=== PATIENT | male | born 1980 | race Caucasian/White ===

== ENCOUNTER 2020-06-25 05:21 | Emergency (ER) | payer OTHER, SELFPAY ==
[2020-06-25 05:34] VITALS: BP 150/87; PULSE 86; RESP 20; TEMP 37.2; O2SAT 99
--- NOTE | 2020-06-25 06:25 | ED.EAR ---
HPI - Ear Problem General Chief complaint: Ear Stated complaint: bug in left ear Time Seen by Provider: 06/25/20 06:12 Source: patient Mode of arrival: ambulatory Limitations: no limitations History of Present Illness HPI Narrative: Patient is a 40-year-old male with a history of hypertension who presents for evaluation of bug in left ear. Patient states he was swimming 2 nights ago when a bug got into his ear from the pool, he tried to place some cooking oil into his ear and does not feel any movement of the back. He has been unsuccessful in other remedies to try to get the bug out. He does not report any ear pain. No dizziness. No discharge from the ear. Related Data Home Medications Medication Instructions Recorded Confirmed lisinopril 20 mg PO DAILY 06/25/20 paroxetine HCl 40 mg PO QAM 06/25/20 Allergies Allergy/AdvReac Type Severity Reaction Status Date / Time No Known Allergies Allergy Unknown Verified 06/25/20 05:31 Review of Systems Review of Systems: Narrative: CONSTITUTIONAL: Denies fever CARDIOVASCULAR: Denies chest pain RESPIRATORY: Denies cough or dyspnea. GASTROINTESTINAL: Denies abdominal pain SKIN: Denies rash MUSCULOSKELETAL: Denies back pain NEUROLOGIC: Denies headache [facility] Past Medical History Medical History (Updated 06/25/20 @ 07:01 by Dorys Villalta MD) Hypertension Social History Social History Smoking status: Former smoker Smoking end date: 11/30/15 Alcohol intake: never Exam Narrative: Exam Narrative: GENERAL: Awake, alert, conversant HEAD: Normocephalic, atraumatic. EYES: PERRLA and EOMI. ENT: Nares clear, no rhinorrhea or epistaxis. Mucous membranes moist. Positive foreign body identified as insect in left ear. No active movement. No perforation of the tympanic membrane. NECK: Supple. CHEST: No respiratory distress, breathing even and non labored HEART: Regular rate, sinus rhythm ABDOMEN:Non distended, non tender EXTREMITIES: Normal range of motion. No edema. SKIN: Warm, dry, no rash. NEURO:No focal deficits. Alert and oriented x3 Course Vital Signs Vital signs: Vital Signs Temperature 37.2 C 06/25/20 05:34 Pulse Rate 86 06/25/20 05:34 Respiratory Rate 20 06/25/20 05:34 Blood Pressure 150/87 H 06/25/20 05:34 Pulse Oximetry 99 06/25/20 05:34 Temperature 37.2 C 06/25/20 05:34 Pulse Rate 86 06/25/20 05:34 Respiratory Rate 20 06/25/20 05:34 Blood Pressure 150/87 H 06/25/20 05:34 Pulse Oximetry 99 06/25/20 05:34 Medical Decision Making MDM Narrative Medical decision making narrative: Patient with foreign body, insect in left ear. It does not appear to be alive. I tried numerous remedies including irrigation, suction with pediatric catheter without able to remove the bug. At this point I feel like patient would benefit from ENT follow-up as I do not want to perforate the tympanic membrane. I spoke with Dr. joshua Orosco who will be able to see the patient either today or tomorrow in clinic. Patient then discharged home. Vital Signs Vital Signs: Vital Signs Temperature 37.2 C 06/25/20 05:34 Pulse Rate 86 06/25/20 05:34 Respiratory Rate 20 06/25/20 05:34 Blood Pressure 150/87 H 06/25/20 05:34 Pulse Oximetry 99 06/25/20 05:34 Temperature 37.2 C 06/25/20 05:34 Pulse Rate 86 06/25/20 05:34 Respiratory Rate 20 06/25/20 05:34 Blood Pressure 150/87 H 06/25/20 05:34 Pulse Oximetry 99 06/25/20 05:34 Discharge Plan Discharge Clinical Impression: Foreign body in ear Qualifiers: Encounter type: initial encounter Laterality: left Qualified Code(s): T16.2XXA - Foreign body in left ear, initial encounter Patient Disposition: Home, Self-Care Condition: Stable Instructions: Ear Foreign Body (ED) Additional Instructions: Please contact Dr. Garcia for follow up from this visit. You may also contact Dr. Mensah. They are all
[2020-06-25 07:10] VITALS: BP 142/87; PULSE 82; RESP 16; O2SAT 99
== END 2020-06-25 07:11 | disposition home or self-care (01) ==
PROVIDERS: Emergency Provider Emergency Medicine; PCP Family Medicine
DX: T16.2XXA Foreign body in left ear, initial encounter (principal); I10 Essential (primary) hypertension; Z87.891 Personal history of nicotine dependence
CPT/HCPCS: 69200; 99282

== ENCOUNTER 2021-02-20 15:37 | Emergency (ER) | payer OTHER, SELFPAY ==
--- NOTE | ~2021-02-20 | CT_ITS ---
EXAMINATION: CT abdomen pelvis w con DATE: 02/20/2021 17:43 INDICATION: Left flank intermittent pain for one day. TECHNIQUE: Computed tomography (CT) of the abdomen and pelvis was performed with 100 cc Omnipaque 350 intravenous contrast. Automated exposure control and iterative reconstruction technique were employe d. Exam dose: 1030.54 mGy-cm total exam DLP. COMPARISON: 07/21/2011 CT abdomen pelvis FINDINGS: Fat-containing left foramen of Bochdalek hernia. The included lower lung zones are clear of infiltrate or consolidation. Normal heart size. No pericar dial or pleural effusion. Status post cholecystectomy. No hepatic, splenic, pancreatic, and adrenal or renal space-occupying ma ss lesion is evident. No urinary tract calculus or hydroureteronephrosis. Urinary bladder is evacuate d, not optimally evaluated. There is prostate, dislocation. Normal caliber of the abdominal aorta. No intraperitoneal or retroperitoneal or pelvic mass lesion or adenopathy or ascites. There is prominent thickening of the wall of the distal descending colon with surrounding fat strandi ng as well as thickening of the adjacent anterior and posterior pararenal and lateroconal fascia. The re is a diverticulum at this area with some opaque material. The findings are consistent with diverti culitis of the distal descending colon. No abscess is identified. No bowel obstruction or intraperitoneal free air. There are some diverticula of the right colon. Norm al appendix. There are shotty nonenlarged mesenteric and right lower quadrant lymph nodes. Included skeletal structures are unremarkable. IMPRESSION: Diverticulitis of the distal descending colon; no abscess is identified Status post cholecystectomy. Reviewed, dictated and finalized at [facility]. Reviewed, dictated and finalized at [facility]. IMPRESSION: Diverticulitis of the distal descending colon; no abscess is ident ified Status post cholecystectomy.
[2021-02-20 16:01] VITALS: BP 144/79; PULSE 104; RESP 16; TEMP 36.9; O2SAT 100
--- NOTE | 2021-02-20 16:50 | ED.GENADULT ---
HPI - General Adult General Chief complaint: Back Pain/Injury Stated complaint: side pain Time Seen by Provider: 02/20/21 16:24 History of Present Illness HPI narrative: Patient is a 32-year-old male with history of hypertension and hyperlipidemia who comes into the ED today complaining of left flank pain. The pain started yesterday. Intermittent in nature. Worse with ambulating and movements of his trunk. No mechanism of injury. No previous history of similar symptoms. He otherwise denies any radiating pain or any urinary symptoms. He did feel nauseated last night without any vomiting. Denies any fevers. Says that 3 weeks ago he saw a few drops of bright red blood on the toilet paper with one time but no other rectal bleeding otherwise. Related Data Home Medications Medication Instructions Recorded Confirmed paroxetine HCl 30 mg tablet See Rx Instructions .ROUTE 01/02/21 01/02/21 .COMPLEX tablet Allergies Allergy/AdvReac Type Severity Reaction Status Date / Time No Known Allergies Allergy Unknown Verified 02/20/21 16:04 Review of Systems Review of Systems: All systems reviewed & are unremarkable except as noted in HPI and below PMFSH Past Medical History Medical History Anxiety Dyslipidemia Environmental allergies Essential (primary) hypertension GERD without esophagitis Hypertension Prediabetes Surgical History Surgical History History of cholecystectomy 2016 Social History Social History Smoking status: Former smoker Smoking end date: 11/30/15 Alcohol intake: never Exam Const: General: cooperative and healthy appearing Other: Pleasant, well-appearing HENMT: Head: normal to inspection Neck: Neck: normal visual inspection Chest: Chest palpation & inspection: normal inspection of the chest Resp: Effort & Inspection: normal respiratory effort Cardio: Rate: regular rate Rhythm: regular rhythm GI: Inspection: normal to inspection GI Palp: Yes abdominal tenderness (Tender to palpate over left flank and left lower quadrant) Back/Spine/Pelvis: Back: CVA tenderness (Left-sided CVA tenderness) Skin: General skin exam: normal color Neuro: General: patient oriented x3 and moves all extremities Psych: Appearance: grossly normal Course Reevaluation(s) Reevaluation #1: Modified Hinchey Classification: 0 Rechecked patient. He is feeling better. Discussed diagnosis of diverticulitis. Told that he will need a colonoscopy done by a avionics mechanic at some point in the next 1 to 2 months. This is the first time he has had diverticulitis. He is tolerating p.o. well. Discussed admission versus discharge, patient would rather be discharged which I feel is reasonable. He agrees to come back to the ED with any new or worsening symptoms. Educated on the importance of liquid diet and low fiber diet over the next few days Date: 02/20/21 Time: 19:19 Vital Signs Vital signs: Vital Signs Temperature 36.9 C 02/20/21 16:01 Pulse Rate 104 H 02/20/21 16:01 Respiratory Rate 16 02/20/21 16:01 Blood Pressure 144/79 H 02/20/21 16:01 Pulse Oximetry 100 02/20/21 16:01 Temperature 36.9 C 02/20/21 16:01 Pulse Rate 88 02/20/21 17:40 Respiratory Rate 16 02/20/21 17:40 Blood Pressure 132/74 02/20/21 17:40 Pulse Oximetry 99 02/20/21 17:40 Medical Decision Making Vital Signs Vital Signs: Vital Signs Temperature 36.9 C 02/20/21 16:01 Pulse Rate 104 H 02/20/21 16:01 Respiratory Rate 16 02/20/21 16:01 Blood Pressure 144/79 H 02/20/21 16:01 Pulse Oximetry 100 02/20/21 16:01 Temperature 36.9 C 02/20/21 16:01 Pulse Rate 88 02/20/21 17:40 Respiratory Rate 16 02/20/21 17:40 Blood Pressure 132/74 02/20/21 17:40 Pulse Oximetry 99 02/20/21 17:40 Lab Data Lab
[2021-02-20] MEDS: KETOROLAC 30 MG/ML VIAL (*BKC) IV PUSH (17:06)
[2021-02-20 17:14] LABS: Basophils Absolute Auto 0.1 K/mm3 (0.0-0.1); Basophils Percent Auto 0.3 % (0.2-1.2); Eosinophils Percent Auto 0.1 % (0-4.4); Hematocrit 42.8 % (42.0-52.0); Immature Granulocyte Absolute 0.06 K/mm3 (0.00-0.031); Immature Granulocyte Percent A 0.4 % (0-0.5); Lymphocytes Absolute Auto 2.49 K/mm3 (0.9-3.2); Lymphocytes Percent Auto 15.5 % (18.3-44.2); Mean Corpuscular Volume 88.4 fl (80-100); Mean Platelet Volume 9.4 fl (7.4-10.4); Monocytes Absolute Auto 1.3 K/mm3 (0.1-0.6); Monocytes Percent Auto 8.1 % (2.6-8.5); Neutrophils Absolute Auto 12.2 K/mm3 (1.3-6.7); Neutrophils Percent Auto 75.6 % (45.5-73.1); Platelet Count Result 309 k/mm3 (150-375); Red Blood Count 4.84 M/mm3 (4.6-6.20); Red Cell Distribution Width 12.2 % (11.5-14.5); White Blood Count 16.1 K/mm3 (4.5-10.0)
[2021-02-20 17:25] LABS: Anion Gap 11 mmol/L (8-16); Blood Urea Nitrogen 17 mg/dL (9-20); Calcium 9.4 mg/dL (8.4-10.2); Carbon Dioxide 26 mmol/L (22-30); Chloride 101 mmol/L (98-107); Estimated CRCL calculation 101 ml/min; Estimated Glomerular Filt Rate > 60; Glucose 127 mg/dL (75-110); Potassium 3.9 mmol/L (3.4-5.0); Sodium 138 mmol/L (137-145)
[2021-02-20 17:40] VITALS: BP 132/74; PULSE 88; RESP 16; O2SAT 99
[2021-02-20 17:47] LABS: Add Urine Microscopic? YES; Appearance Urine Clear (Clear); Bilirubin Urine Negative (Negative); Blood Urine 1+ (Negative); Color Urine Yellow (Yellow); Glucose Urine UA Negative (Negative); Ketones Urine Negative (Negative); Leukocyte Esterase Ur Negative LEU/UL (Negative); Mucus Urine Rare /lpf; Nitrate Urine Negative (Negative); Protein Urine 1+ mg/dL (Negative); Squamous Epithelial Cell Urine Rare /hpf (Few); Urobilinogen Urine Negative mg/dL (<2.0); WBC Urine 0-3 /hpf
[2021-02-20] MEDS: LACTATED RINGERS 1,000 ML 999 ML IV CONT (18:38)
[2021-02-20] MEDS: metroNIDAZOLE 500 MG/ISO 100ML 500 MG/100 ML BAG 100 MG IVPB (18:38)
[2021-02-20 18:49] LABS: Lactic Acid Reflex 0.9 mmol/L (0.7-2.1)
[2021-02-20] MEDS: CIPROFLOXACIN 400 MG/D5W 200ML 200 ML 200 MG IVPB (19:12)
[2021-02-20] MEDS: HYDROcodone/acetaminophen (*CRX) 5-325 MG TABLET 1 TAB PO (19:30)
[2021-02-20 19:49] VITALS: BP 134/74; PULSE 80; RESP 18; O2SAT 98
== END 2021-02-20 20:23 | disposition home or self-care (01) ==
PROVIDERS: Physician Assistant Medical; Emergency Provider Emergency Medicine; PCP Family Medicine
DX: K57.92 Diverticulitis of intestine, part unspecified, without perforation or abscess without bleeding (principal); F41.9 Anxiety disorder, unspecified; E78.5 Hyperlipidemia, unspecified; I10 Essential (primary) hypertension; K21.9 Gastro-esophageal reflux disease without esophagitis
CPT/HCPCS: 36415; 74177; 80048; 81001; 83605; 85025; 96361; 96365; 96367; 96375; 99284; A9270; J0744; J1885; J7120; Q9967

== ENCOUNTER → 2021-03-30 06:34 | Outpatient (CLI) | payer OTHER, SELFPAY ==
[2021-03-30 19:16] LABS: SARS-CoV-2 RNA PCR Negative
== END ==
PROVIDERS: PCP Family Medicine; Visit Provider Internal Medicine Gastroenterology
DX: Z01.812 Encounter for preprocedural laboratory examination (principal); Z20.822 Contact with and (suspected) exposure to COVID-19
CPT/HCPCS: C9803; U0003; U0005

== ENCOUNTER 2021-04-03 01:10 | Day surgery (SDC) | payer OTHER, SELFPAY ==
[2021-03-21 13:37] VITALS: BMI 35.2
[2021-04-03] MEDS: LACTATED RINGERS 1,000 ML 150 ML IV CONT (08:58)
[2021-04-03 09:01] VITALS: BP 136/83; PULSE 87; RESP 18; TEMP 36.7; O2SAT 97; BMI 34.2
--- NOTE | 2021-04-03 09:22 | WPDANESEPPF ---
Anes - Initial Pre Proc Eval Procedure: Operation Date: 04/03/21 10:00 Proposed Procedures p Esophagogastroduodenoscopy & Colonoscopy - Jeovany Mohr MD Date/Time: 04/03/21 09:22 Surgeon: Jeovany Mohr MD Pre Op Diagnosis: diverticulitis and gerd Patient Data Age: 41 Gender: M Height: 5 ft 8 in Weight: 102 kg Last Vital Signs Temp 36.7 C 04/03/21 09:01 Pulse 87 04/03/21 09:01 Resp 18 04/03/21 09:01 BP 136/83 04/03/21 09:01 Pulse Ox 97 04/03/21 09:01 Allergies Allergy/AdvReac Type Severity Reaction Status Date / Time No Known Allergies Allergy Unknown Verified 04/03/21 09:01 Home Medications Medication Instructions Recorded Confirmed Type lisinopril 20 See Rx Instructions .ROUTE 08/27/20 03/21/21 Rx mg-hydrochlorothiazide 12.5 mg .COMPLEX #90 tablet tablet atorvastatin 20 mg tablet 20 mg PO QPM #90 tablet 01/18/21 03/21/21 Rx paroxetine HCl 30 mg tablet See Rx Instructions .ROUTE 03/25/21 Rx .COMPLEX #90 tablet Patient hx anesthesia problems: none Family hx anesthesia problems: none PMFSH Past Medical History Medical History Anxiety Dyslipidemia Environmental allergies Essential (primary) hypertension GERD without esophagitis Hypertension Prediabetes Surgical History Surgical History History of cholecystectomy 2017 Family History Family History Grandparent FH: stomach cancer Social History Social History Smoking packs per day: 1.5 Smoking cigarettes per day: 30.0 Years smoked: 12 Smoking pack-years: 18.00 Smoking status: Former smoker Smoking end date: 11/30/15 Alcohol intake: current Alcohol use details: 2 per month Substance use: never Living arrangements: with family Gender identity (if verbalized by the patient): Male Spiritual care concerns: No Anes - Eval Final PreProcedure Day of Procedure 04/03/21 09:22 Patient weight: obese Heart: regular rate and rhythm Lungs: decreased breath sounds Airway: Mallampati scale class II Neurological: alert and oriented Last oral intake: >/= 8 hours ASA classification: III Emergent: no Anesthetic plan: proceed Anesthesia type and monitoring: general GIVS and standard monitoring Informed Consent: The patient's anesthetic plan and its attendant risks and benefits were discussed with the patient/family/POA. Questions were solicited and answers provided to the satisfaction of the patient/family/POA.
--- NOTE | 2021-04-03 09:47 | PM.HPGS ---
History of Present Illness History of Present Illness Consent: Risks, benefits, and alternatives have been discussed and questions answered. Patient agrees to proceed with procedure. Chief complaint: diverticulitis and gerd Narrative: Kristopher Maza is a 41 year old male with the recent illness suggestive of diverticulitis. His CT scan showed thickening and irregularity of the distal descending colon. He was advised to have a colonoscopy to rule out other pathology in this area. He also suffers from periodic epigastric discomfort, a bubble type sensation. It is similar but not the same as the symptoms he had prior to his cholecystectomy Review of Systems Review of Systems: All systems reviewed & are unremarkable except as noted in HPI and below PMFSH Past Medical History Medical History Anxiety Dyslipidemia Environmental allergies Essential (primary) hypertension GERD without esophagitis Hypertension Prediabetes Surgical History Surgical History History of cholecystectomy 2017 Family History Family History Grandparent FH: stomach cancer Social History Social History Smoking packs per day: 1.5 Smoking cigarettes per day: 30.0 Years smoked: 12 Smoking pack-years: 18.00 Smoking status: Former smoker Smoking end date: 11/30/15 Alcohol intake: current Alcohol use details: 2 per month Substance use: never Living arrangements: with family Gender identity (if verbalized by the patient): Male Spiritual care concerns: No Meds Home Medications and Allergies Home Medications Medication Instructions Recorded Confirmed Type lisinopril 20 See Rx Instructions .ROUTE 08/27/20 03/21/21 Rx mg-hydrochlorothiazide 12.5 mg .COMPLEX #90 tablet tablet atorvastatin 20 mg tablet 20 mg PO QPM #90 tablet 01/18/21 03/21/21 Rx paroxetine HCl 30 mg tablet See Rx Instructions .ROUTE 03/25/21 Rx .COMPLEX #90 tablet Allergies Allergy/AdvReac Type Severity Reaction Status Date / Time No Known Allergies Allergy Unknown Verified 04/03/21 09:01 Vital Signs Vital Signs - 24 hr 04/03/21 09:01 Temperature 36.7 C Pulse Rate 87 Respiratory Rate 18 Blood Pressure 136/83 Pulse Oximetry 97 Exam Const: General: alert Orientation/consciousness: patient oriented x3 Resp: Auscultation: clear to auscultation bilaterally Cardio: Rhythm: regular rhythm GI: GI Palp: Yes Soft to palpation and No Tenderness to palpation present (GI) Neuro: General: patient oriented x3 Assessment and Plan Assessment and plan (1) Epigastric pain: Code(s): R10.13 - Epigastric pain Status: Acute Assessment and Plan: EGD with possible biopsy or dilatation or cautery. (2) Abnormal CT scan, gastrointestinal tract: Code(s): R93.3 - Abnormal findings on diagnostic imaging of other parts of digestive tract Status: Acute Assessment and Plan: Colonoscopy with possible biopsy or polypectomy or cautery or injection of substances.
[2021-04-03] MEDS: SIMETHICONE ORAL SUSPENSION 20 MG/0.3 ML 30 ML BOTTLE 0.6 ML IRRIGATION (10:27)
[2021-04-03 10:34] VITALS: BP 100/64; PULSE 75; RESP 20; O2SAT 95
[2021-04-03 10:44] VITALS: BP 92/65; PULSE 90; RESP 27; O2SAT 95
[2021-04-03 10:54] VITALS: BP 112/77; PULSE 82; RESP 23; O2SAT 98
== END 2021-04-03 11:01 | disposition home or self-care (01) ==
PROVIDERS: PCP Family Medicine; Visit Provider Internal Medicine Gastroenterology
PROC: 0DJ08ZZ Inspection of Upper Intestinal Tract, Via Natural or Artificial Opening Endoscopic (ICD-10-PCS; CPT 43235; principal; 2021-04-03 10:00)
DX: K57.30 Diverticulosis of large intestine without perforation or abscess without bleeding (principal); K22.70 Barrett's esophagus without dysplasia; K29.50 Unspecified chronic gastritis without bleeding; K21.00 Gastro-esophageal reflux disease with esophagitis, without bleeding; K25.9 Gastric ulcer, unspecified as acute or chronic, without hemorrhage or perforation; I10 Essential (primary) hypertension; E78.5 Hyperlipidemia, unspecified; R73.03 Prediabetes; F41.9 Anxiety disorder, unspecified; Z87.891 Personal history of nicotine dependence; E66.9 Obesity, unspecified; Z68.34 Body mass index [BMI] 34.0-34.9, adult
CPT/HCPCS: 45378; 43239; 87081; 88305; C9803; J2001; J2704; J7120; U0003; U0005

== ENCOUNTER 2021-11-18 09:28 | Outpatient (RCR) | payer OTHER, SELFPAY ==
[2021-11-18] MEDS: ACETAMINOPHEN 325 MG TABLET 650 MG PO (13:34)
[2021-11-18] MEDS: FAMOTIDINE 20 MG TABLET PO (13:34)
[2021-11-18] MEDS: diphenhydrAMINE HCl CAP 25 MG CAPSULE PO (13:34)
[2021-11-18 13:38] VITALS: BP 140/84; PULSE 80; RESP 20; TEMP 36.4; O2SAT 99
[2021-11-18 15:13] VITALS: BP 125/72
--- NOTE | 2021-11-19 09:24 | PC.NURSE ---
Called Mr Maza and he is feeling much better and does not have any questions for us at this time.
== END 2021-11-18 17:00 ==
LOC: AMCINF 09:28
PROVIDERS: PCP Nurse Practitioner; Visit Provider Internal Medicine Hematology & Oncology
DX: U07.1 COVID-19 (principal); I10 Essential (primary) hypertension
CPT/HCPCS: A9270; M0245; Q0245

== ENCOUNTER 2021-12-19 09:49 | Emergency (ER) | payer OTHER, SELFPAY ==
[2021-12-19 09:56] VITALS: BP 161/87; PULSE 110; RESP 20; TEMP 36.8; O2SAT 98
--- NOTE | 2021-12-19 10:11 | ED.URI ---
HPI - URI/Sore Throat General Chief Complaint: Upper Respiratory Infection Stated Complaint: sore throat Time Seen by Provider: 12/19/21 10:11 Source: patient History of Present Illness HPI Narrative: patient presents with sore throat and cough. no shortness of breath and no chest pain. Patient states he had Covid in October. Current symptoms started one day ago. no trouble swallowing and no drooling. MD elicited complaint: sore throat and nasal congestion Related Data Allergies Allergy/AdvReac Type Severity Reaction Status Date / Time No Known Allergies Allergy Unknown Verified 12/19/21 10:05 Review of Systems Review of Systems: CONSTITUTIONAL: Denies chills, or sweats. Reports fever and generalized body aches EYES: Denies visual changes, redness, or discharge. ENT: Denies otalgia. Reports nasal congestion runny nose and sore throat CARDIOVASCULAR: Denies chest pain, palpitations, or edema. RESPIRATORY: Denies dyspnea. Reports occasional cough GASTROINTESTINAL: Denies abdominal pain, nausea, vomiting, or diarrhea. GENITOURINARY: Denies dysuria or hematuria. SKIN: Denies rash or itching. MUSCULOSKELETAL: Denies back pain, joint pain, or myalgia. Reports generalized body aches NEUROLOGIC: Denies headache, numbness, or weakness. PSYCHIATRIC: Denies anxiety or depression. [facility] Past Medical History Medical History Anxiety Colon ulcer Dyslipidemia Environmental allergies Essential (primary) hypertension GERD without esophagitis History of diverticulitis 01/2021 Prediabetes Surgical History Surgical History History of cholecystectomy 2017 Hx of colonoscopy (~04/03/21) Family History Family History Grandparent FH: stomach cancer Social History Social History Smoking packs per day: 1.5 Smoking cigarettes per day: 30.0 Years smoked: 15 Smoking pack-years: 22.50 Smoking status: Former smoker Tobacco type: cigarettes Smoking end date: 11/30/15 Alcohol intake: current Alcohol use details: 2 per month Substance use: never Gender identity (if verbalized by the patient): Male Spiritual care concerns: No Comments At time of signature, agree with nursing past medical, surgical, social and family history. There is no relevant family history pertinent to the presenting complaint Exam Narrative: The patient is a well-developed, well-nourished in no acute distress. SKIN: Skin is warm and dry without erythema, swelling or exudate. There is good turgor. No tenting. HEAD: Atraumatic. Normocephalic. No temporal or scalp tenderness. EYES: Moist and bright. Sclera and conjunctivae normal. No discharge. PERRLA. Extraocular motions intact. Gross visual acuity intact. EARS: Pinna is normal shape and contour. Clear external auditory canals. TM pearly jacobs with good cone of light, no erythema or suppuration. Bilateral cerumen noted no gross hearing deficit. NOSE: pink, moist mucosa with good air movement. Clear rhinorrhea without nasal flaring. Septum midline. Mouth: moist mucous membranes. THROAT; mild erythema noted to posterior oropharynx with moderate postnasal drainage. Without exudate or ulceration.. Uvula midline. Normal movement of soft palate. NECK: Supple and nontender with full range of motion without discomfort. No meningeal signs. LUNGS: Equal and bilateral breath sounds without wheezes, rales or rhonchi. CHEST: The chest wall is without retractions or use of accessory muscles. HEART: Has a regular rate and rhythm without murmur, gallops, click or rub. ABDOMEN: Soft, nontender with positive active bowel sounds. No rebound tenderness. EXTREMITIES: Without cyanosis, clubbing or edema. Equal 2+ distal pulses and 2 second capillary refill noted. NEUROLOGIC: alert, activ
== END 2021-12-19 10:30 | disposition home or self-care (01) ==
PROVIDERS: Emergency Provider Nurse Practitioner Family; PCP Family Medicine
DX: J06.9 Acute upper respiratory infection, unspecified (principal); J02.9 Acute pharyngitis, unspecified; U07.1 COVID-19; Z87.891 Personal history of nicotine dependence; E78.5 Hyperlipidemia, unspecified; I10 Essential (primary) hypertension; K21.9 Gastro-esophageal reflux disease without esophagitis; R73.03 Prediabetes; F41.9 Anxiety disorder, unspecified
CPT/HCPCS: 87081; 87426; 87880; 99213; C9803; G0463

== ENCOUNTER 2021-12-21 04:23 | Emergency (ER) | payer OTHER, SELFPAY ==
[2021-12-21 04:27] VITALS: BP 167/92; PULSE 94; RESP 16; TEMP 36.6; O2SAT 97
--- NOTE | 2021-12-21 04:45 | ED.GENADULT ---
HPI - General Adult General Chief complaint: Unspecified Stated complaint: sore throat, covid neg 12/17/21 Time Seen by Provider: 12/21/21 04:33 Source: RN notes reviewed History of Present Illness HPI narrative: Patient presents emergency room from home for sore throat. Patient states symptoms began approximately 4 days ago. States that throat is painful to swallow and sore he states he has been taking ibuprofen which does help with the pain but then it comes back as ibuprofen wears off patient states that he was seen at the urgent care approximately 2 days ago and at that time had a negative COVID test as well as a negative strep test he was sent home with Flonase as well as a steroid taper states he has been taking the steroid taper but he has a known history of gastric ulcers from a previous endoscopy there is been making him mildly nauseous he states he has been able to eat and drink he denies any fevers or chills chest pain cough abdominal pain vomiting or any other symptoms patient states he is through 2 rows of the Medrol Dosepak Related Data Allergies Allergy/AdvReac Type Severity Reaction Status Date / Time No Known Allergies Allergy Unknown Verified 12/21/21 04:34 Review of Systems Review of Systems: Gen.: Denies fevers or chills Eyes: Denies eye pain or visual change ENT: See HPI Respiratory: Denies shortness of breath or cough CV: Denies chest pain or palpitations GI: Denies abdominal pain vomiting or diarrhea. Reports nausea Musculoskeletal: Denies back pain or muscle pain Neuro: Denies numbness, tingling, weakness or focal weakness Skin: Denies rash Except as documented, all other systems reviewed and negative [facility] Past Medical History Medical History Anxiety Colon ulcer Dyslipidemia Environmental allergies Essential (primary) hypertension GERD without esophagitis History of diverticulitis 01/2021 Prediabetes Surgical History Surgical History History of cholecystectomy 2016 Hx of colonoscopy (~04/03/21) Family History Family History Grandparent FH: stomach cancer Social History Social History Smoking packs per day: 1.5 Smoking cigarettes per day: 30.0 Years smoked: 15 Smoking pack-years: 22.50 Smoking status: Former smoker Tobacco type: cigarettes Smoking end date: 11/30/15 Alcohol intake: current Alcohol use details: 2 per month Substance use: never Gender identity (if verbalized by the patient): Male Spiritual care concerns: No Exam Narrative: APPEARANCE: No acute distress, nontoxic, resting in bed EYES: EOMI HEENT: Normocephalic, atraumatic, TMs clear bilaterally nares patent oral mucosa moist, erythema the posterior pharynx bilateral tonsils 2+ uvula midline no trismus tolerating own secretions RESPIRATORY: No respiratory distress Clear to auscultation bilaterally with no rhonchi wheezing or rales. CARDIOVASCULAR: Regular rate and rhythm without murmurs rubs or gallops. ABDOMINAL: Soft, nontender, nondistended, no rebound or guarding MUSCULOSKELETAl: Moves all extremities. No clubbing, cyanosis or edema. NEURO: Awake and alert. Following commands, speech normal, no focal deficits SKIN:: Warm, dry. No rashes lesions or abrasions PSYCHIATRIC: Normal affect/mood, Course Course Emergency Course: Reviewed old records patient with negative COVID swab strep culture still pending at this time will cover with antibiotics continue to be symptomatic Discussed with patient and family results of workup and diagnosis. Discussed need for admission. Patient and family understand and agree to current treatment plan Vital Signs Vital signs: Vital Signs Temperature 97.9 F 12/21/21 04:27 Pulse Rate 94 12/21/21 04:27 Respiratory Rate 16 12/21/21 0
[2021-12-21] MEDS: AMOXICILLIN/CLAVULANATE K 875-125 MG TAB 1 TABLET PO (04:50)
[2021-12-21] MEDS: ONDANSETRON HCL ODT 4 MG TABLET PO (04:50)
== END 2021-12-21 04:57 | disposition home or self-care (01) ==
PROVIDERS: Emergency Provider Emergency Medicine; PCP Family Medicine
DX: J02.9 Acute pharyngitis, unspecified (principal); E78.5 Hyperlipidemia, unspecified; I10 Essential (primary) hypertension; K21.9 Gastro-esophageal reflux disease without esophagitis; R73.03 Prediabetes; Z87.891 Personal history of nicotine dependence
CPT/HCPCS: 99283; A9270

== ENCOUNTER 2021-12-27 16:02 | Emergency (ER) | payer OTHER, SELFPAY ==
[2021-12-27 16:07] VITALS: BP 163/73; PULSE 102; RESP 18; TEMP 37.2; O2SAT 98
--- NOTE | 2021-12-27 16:20 | ED.NECK ---
HPI - Neck Pain/Injury General Chief Complaint: Neck Pain/Injury Stated Complaint: pain in neck when coughs Time Seen by Provider: 12/27/21 16:25 History of Present Illness HPI Narrative: Patient presents with left-sided neck pain only when he coughs. Patient states that he could control his cough his neck would not hurt. Patient denies any radiation pain no numbness or tingling no injury to his neck. MD complaint: neck pain Related Data Allergies Allergy/AdvReac Type Severity Reaction Status Date / Time No Known Allergies Allergy Unknown Verified 12/21/21 04:34 Review of Systems Review of Systems: CONSTITUTIONAL: Denies fever, chills, or sweats. EYES: Denies visual changes, redness, or discharge. ENT: Denies rhinorrhea, congestion, sore throat, or otalgia. CARDIOVASCULAR: Denies chest pain, palpitations, or edema. RESPIRATORY: Denies cough or dyspnea. GASTROINTESTINAL: Denies abdominal pain, nausea, vomiting, or diarrhea. GENITOURINARY: Denies dysuria or hematuria. SKIN: Denies rash or itching. MUSCULOSKELETAL: Denies back pain, joint pain, or myalgia. NEUROLOGIC: Denies headache, numbness, or weakness. PSYCHIATRIC: Denies anxiety or depression. [facility] Past Medical History Medical History Anxiety Colon ulcer Dyslipidemia Environmental allergies Essential (primary) hypertension GERD without esophagitis History of diverticulitis 01/2021 Prediabetes Surgical History Surgical History History of cholecystectomy 2017 Hx of colonoscopy (~04/03/21) Family History Family History Grandparent FH: stomach cancer Social History Social History Smoking packs per day: 1.5 Smoking cigarettes per day: 30.0 Years smoked: 15 Smoking pack-years: 22.50 Smoking status: Former smoker Tobacco type: cigarettes Smoking end date: 11/30/15 Alcohol intake: current Alcohol use details: 2 per month Substance use: never Gender identity (if verbalized by the patient): Male Spiritual care concerns: No Comments GENERAL: Well-appearing, well-nourished, and in no acute distress. HEAD: Normocephalic, atraumatic. EYES: PERRLA and EOMI. ENT: Nares clear, no rhinorrhea or epistaxis. Mucous membranes moist. NECK: Supple. CHEST: Clear to auscultation. No respiratory distress. HEART: Regular rate and rhythm. No murmur heard. Normal peripheral pulses. ABDOMEN: Soft, nontender, nondistended, normal active bowel sounds. EXTREMITIES: Normal range of motion. No edema. SKIN: Warm, dry, no rash. NEURO: No focal deficits. Alert and oriented x3. Meghan Coma Scale Eye Opening: Spontaneous 4 Meghan Coma Scale Motor: Obeys Commands 6 Meghan Coma Scale Verbal: Oriented 5 Meghan Coma Scale Total 15 At time of signature, agree with nursing past medical, surgical, social and family history. There is no relevant family history pertinent to the presenting complaint Exam Narrative: GENERAL: Well-appearing, well-nourished, and in no acute distress. HEAD: Normocephalic, atraumatic. EYES: PERRLA and EOMI. ENT: Nares clear, no rhinorrhea or epistaxis. Mucous membranes moist. Mild postnasal drainage NECK: Supple. CHEST: Clear to auscultation. No respiratory distress. HEART: Regular rate and rhythm. No murmur heard. Normal peripheral pulses. ABDOMEN: Soft, nontender, nondistended, normal active bowel sounds. EXTREMITIES: Normal range of motion. No edema. NO PARASPINAL TENDERNESS, NO VERTEBRAL TENDERNESS OR STEP OFFS. NO SWELLING. NORMAL ROM OF NECK. NORMAL UE STRENGTH AND SENSATION. SKIN: Warm, dry, no rash. NEURO: No focal deficits. Alert and oriented x3. Meghan Coma Scale Eye Opening: Spontaneous 4 [place] Coma Scale Motor: Obeys Commands 6 [place] Coma Scale Verbal: Oriented 5 Meghan Coma Scale Total 15
== END 2021-12-27 16:36 | disposition home or self-care (01) ==
PROVIDERS: Emergency Provider Nurse Practitioner Family; PCP Family Medicine
DX: S16.1XXA Strain of muscle, fascia and tendon at neck level, initial encounter (principal); X58.XXXA Exposure to other specified factors, initial encounter; E78.5 Hyperlipidemia, unspecified; I10 Essential (primary) hypertension; K21.9 Gastro-esophageal reflux disease without esophagitis; R73.03 Prediabetes; Z87.891 Personal history of nicotine dependence; F41.9 Anxiety disorder, unspecified
CPT/HCPCS: 99213; G0463

== ENCOUNTER 2022-12-08 15:08 | Outpatient (CLI) | payer OTHER, SELFPAY ==
[2022-12-08 17:36] LABS: Basophils Absolute Auto 0.1 K/mm3 (0.0-0.1); Basophils Percent Auto 0.9 % (0.2-1.2); Eosinophils Absolute Auto 0.3 K/mm3 (0-0.3); Eosinophils Percent Auto 3.7 % (0-4.4); Hematocrit 44.1 % (42.0-52.0); Hemoglobin 14.9 g/dL (14.0-18.0); Immature Granulocyte Absolute 0.02 K/mm3 (0.00-0.031); Immature Granulocyte Percent A 0.3 % (0-0.5); Lymphocytes Absolute Auto 2.39 K/mm3 (0.9-3.2); Lymphocytes Percent Auto 34.2 % (18.3-44.2); Mean Corpuscular HGB Conc 33.8 g/dl (32-36); Mean Corpuscular Hemoglobin 30.7 pg (26-34); Mean Corpuscular Volume 90.9 fl (80-100); Mean Platelet Volume 9.6 fl (7.4-10.4); Monocytes Absolute Auto 0.5 K/mm3 (0.1-0.6); Monocytes Percent Auto 6.7 % (2.6-8.5); Neutrophils Absolute Auto 3.8 K/mm3 (1.3-6.7); Neutrophils Percent Auto 54.2 % (45.5-73.1); Platelet Count Result 311 k/mm3 (150-375); Red Blood Count 4.85 M/mm3 (4.6-6.20); Red Cell Distribution Width 11.9 % (11.5-14.5)
[2022-12-08 19:12] LABS: Alanine Aminotransferase 27 U/L (6-50); Albumin Level 4.5 g/dL (3.5-5.1); Alkaline Phosphatase 64 U/L (38-126); Anion Gap 7 mmol/L (8-16); Aspartate Amino Transferase 40 U/L (17-59); Bilirubin,Total 0.4 mg/dL (0.2-1.3); Blood Urea Nitrogen 15 mg/dL (9-20); Calcium 9.1 mg/dL (8.4-10.2); Carbon Dioxide 29 mmol/L (22-30); Chloride 102 mmol/L (98-107); Cholesterol 279 mg/dL (0-200); Estimated Glomerular Filt Rate > 60; Glucose 101 mg/dL (65-110); HDL Direct 29 mg/dL; Potassium 4.1 mmol/L (3.4-5.0); Sodium 138 mmol/L (137-145); Triglycerides 441 mg/dL (<150)
[2022-12-08 19:23] LABS: LDL Cholesterol Direct 149 mg/dL
[2022-12-08 20:58] LABS: Vitamin D 25 Hydroxy 20.3 ng/mL
[2022-12-08 21:20] LABS: Hemoglobin A1C 5.9 % (<5.7)
== END 2022-12-08 15:09 | disposition home or self-care (01) ==
LOC: ANHGOSHLAB 15:10
PROVIDERS: PCP Family Medicine; Visit Provider Nurse Practitioner Family
DX: E55.9 Vitamin D deficiency, unspecified (principal); E78.5 Hyperlipidemia, unspecified; I10 Essential (primary) hypertension; R73.03 Prediabetes
CPT/HCPCS: 36415; 80053; 80061; 82306; 83036; 85025

== ENCOUNTER 2023-11-25 18:48 | Emergency (ER) | payer SELFPAY ==
[2023-11-25 18:54] VITALS: BP 144/82; PULSE 91; RESP 16; TEMP 36.3; O2SAT 97
--- NOTE | 2023-11-25 18:59 | ED.GENADULT ---
HPI - General Adult General Chief complaint: Upper Respiratory Infection Stated complaint: cough/throat Source: patient, RN notes reviewed and old records reviewed Mode of arrival: ambulatory Limitations: no limitations History of Present Illness HPI narrative: 43-year-old male presents to [facility] with complaints of postnasal drip that causes patient after clear throat. Patient states symptoms started 2-3 years ago. Patient states takes Benadryl at times which does help. MD complaint: Postnasal drip Related Data Allergies Allergy/AdvReac Type Severity Reaction Status Date / Time No Known Allergies Allergy Unknown Verified 11/25/23 18:54 Review of Systems Constitutional: Constitutional: Reports no additional constitutional complaints, Denies body ache(s), Denies chills, Denies fatigue, Denies fever(s) and Denies headache(s) Eyes: Eyes: Reports no additional eye complaints and Denies blurry vision ENT: Reports system reviewed and no additional complaints, except as documented, Denies vertigo, Denies dizziness, Denies ear discharge, Denies otalgia, Denies facial pain, Denies headache(s), Reports nasal congestion, Reports nasal discharge, Reports post nasal drip, Denies sinus pain, Denies sinus pressure and Denies sore throat Cardiovascular: Cardiovascular: Reports no additional cardiovascular complaints, Denies chest pain, Denies chest pain at rest, Denies rapid heart rate and Denies dyspnea Respiratory: Respiratory: Reports no additional respiratory complaints, Denies chest congestion, Denies cough, Denies pain on inspiration, Denies pain with cough and Denies dyspnea Gastrointestinal: Gastrointestinal: Denies abdominal pain, Denies diarrhea, Denies nausea and Denies vomiting Integumentary/Breasts: Skin/Breast: Denies rash Neurologic: Reports system reviewed and no additional complaints, except as documented, Denies vertigo, Denies dizziness and Denies headache(s) Endocrine: Endocrine: Denies fatigue PMFSH Past Medical History Medical History Anxiety Colon ulcer Dyslipidemia Environmental allergies Essential (primary) hypertension GERD without esophagitis History of diverticulitis 01/2021 Prediabetes Vitamin D deficiency Surgical History Surgical History History of cholecystectomy 2017 Hx of colonoscopy (~04/03/21) Family History Family History Grandparent FH: stomach cancer Social History Social History Smoking packs per day: 1.5 Smoking cigarettes per day: 30.0 Years smoked: 15 Smoking pack-years: 22.50 Smoking status: Former smoker Tobacco type: cigarettes Smoking end date: 11/30/15 Alcohol intake: current Alcohol use details: 2 per month Substance use: never Substance use type: does not use Lack of Transportation: No Lack of Food: Never True Current Housing: I Have Housing Concerned About Future Housing: No Difficulty Paying Gas/Electric Bills: No Difficulty Paying for Meds: No Currently Unemployed: No Education: High School Diploma/GED Difficulty w/ Childcare or Family Care: No Living arrangements: with family Occupation/Education: occupation Gender identity (if verbalized by the patient): Male Spiritual care concerns: No Agree to blood products: Yes Comments At the time of my signature, I reviewed and agree with the nursing past medical, surgical, social, and family history. There is no relevant family history pertinent to the patient complaint. Exam Const: General: cooperative, healthy appearing, no acute distress and well nourished Nutritional Appearance: well nourished Orientation/consciousness: patient oriented x3 Limitations: no limitations HENMT: Head: normal to inspection and normocephalic Ears: debeaker
== END 2023-11-25 19:10 | disposition home or self-care (01) ==
PROVIDERS: Emergency Provider Registered Nurse; PCP Family Medicine
DX: J30.89 Other allergic rhinitis (principal); Z87.891 Personal history of nicotine dependence; E78.5 Hyperlipidemia, unspecified; I10 Essential (primary) hypertension; K21.9 Gastro-esophageal reflux disease without esophagitis; R73.03 Prediabetes
CPT/HCPCS: 99213; G0463

== ENCOUNTER 2025-07-21 15:34 | Outpatient (CLI) | payer OTHER, SELFPAY ==
--- OUTSIDE RECORDS SUMMARY | 2025-07-21 15:37 | XMS_ITS | Clinical Summary ---
Author Organization [facility] [employer] Address [address] [place] [address] Care Team Providers Care Forestry Hunter Name Role Phone Stuart Vasquez MD Primary Care Provider [phone] Source Comments [facility] [employer],non-owned Affiliates and Associated Physician Practices is amultiple site organization consisting of ambulatory clinics and hospital sitesin [place], [place], [place] and [place]. This disclosure is being madepursuant to the Care Everywhere program and may not contain all information available regarding this patient. Last updated 18.[facility] [employer] Allergies No known active allergies Medications * Be aware that medications may not be up to date on this document. Alwaysverify current medications with the patient. cetirizine (ZYRTEC) 10 MG tablet Take 10 mg by mouth once daily 0 Active fluticasone propionate (FLONASE) 50 MCG/ACT nasal spray ADMINISTER 1 SPRAY INTO EACH NOSTRIL TWICE DAILY 0 Active lisinopril-hydr oCHLOROthiazide (PRINZIDE; ZESTORETIC) 20-12.5 MG tablet Take 1 tablet by mouth once daily 0 Active PARoxetine (PAXIL) 30 MG tablet TAKE 1 TABLET BY MOUTH EVERY DAY NEEDS FOLLOW UP FOR FURTHER REFILLS 0 Active Social History Tobacco Use Types Packs/Day Years Used Date Smoking Tobacco: Former Cigarettes Smokeless Tobacco: Never Alcohol Use Standard Drinks/Week Comments Yes 0 (1 standard drink = 0.6 oz pur e alcohol) rare Sex and Gender Information Value Date Recorded Sex Assigned at Not on file Legal Sex Male 12:42 PM FRONT ATTENDANT Gender Identity Not on file Sexual Orientation Not on file Last Filed Vital Signs Vital Sign Reading Time Taken Comments Blood Pressure 130/80 11/05/2020 1:49 PM FRONT ATTENDANT Pulse 72 11/05/2020 1:49 PM FRONT ATTENDANT Temperature 35.9 C (96.6 F) 11/05/2020 1:49 PM FRONT ATTENDANT Respiratory Rate 16 11/05/2020 1:49 PM FRONT ATTENDANT Oxygen Saturation - - Inhaled Oxygen Concentration - - Weight 110.2 kg (243 lb) 11/05/2020 1:49 PM FRONT ATTENDANT Height 172.7 cm (5' 8) 11/05/2020 1:49 PM FRONT ATTENDANT Body Mass Index 36.95 11/05/2020 1:49 PM FRONT ATTENDANT Plan of Treatment Health Maintenance Due Date Last Done Comments LIPID TESTING 1982 HIV SCREENING 1997 HEPATITIS C SCREENING 03/25/2000 DTAP/TDAP/TD VACCINES (1 - Tdap) 2001 HEPATITIS B VACCINE (1 of 3 - 19+ 3-dose series) 2001 HPV VACCINE (1 - 3-dose SCDM series) 2009 COVID-19 VACCINE (1 - 2023-2 5 season) 2024 DEPRESSION SCREENING 11/30/2024 INFLUENZA VACCINE (#1) 2025 ZOSTER VACCINE (1 of 2) 2032 HIB VACCINE Aged Out No longer eligi ble based on patient's age to complete this topic MENINGOCOCCAL (Group B) VACC INE SHARED DECISION-MAKING Aged Out No longer eligibl e based on patient's age to complete this topic MENINGOCOCCAL GROUPS A/C/Y/W VACCINE Aged Out No longer eligible b ased on patient's age to complete this topic PNEUMOCOCCAL VACCINE Aged Out No long er eligible based on patient's age to complete this topic Insurance [facility] Care Teams Forestry Hunter Relationship Specialty Start Date End Date Stuart Vasquez MD [address] [place] [address] PCP - General 04/04/21
--- OUTSIDE RECORDS SUMMARY | 2025-07-21 15:37 | XMS_ITS | Clinical Summary ---
Author Organization [facility] Address [address] [place] [id number] Care Team Providers Care Road Supervisor Of Engines Name Role Phone Adolfo Martel MD Primary Care Provider Allergies No known active allergies Medications PARoxetine 30 MG tablet TAKE 1 TABLET BY MOUTH EVERY DAY NEEDS FOLLOW UP FOR FURTHER REFILLS 08/08/2020 Active lisinopril-hydr oCHLOROthiazide 20-12.5 MG tablet Take 1 tablet by mouth daily. 11/17/2020 Active azithromycin 250 MG tablet Take 2 tablets by mouth on day one then 1 daily for four days. 6 tablet 12/11/2020 Active triamcinolone acetonide 55 MCG/ACT nasal inhaler 2 sprays by Each Nostril route daily. 1 Bottle 12/11/2020 Active Family History Medical History Relation Comments No Known Problems Father No Known Problems Mother Relation Status Comments Father Mother Social History Tobacco Use Types Packs/Day Years Used Date Smoking Tobacco: Former Smokeless Tobacco: Never Alcohol Use Standard Drinks/Week Comments Never 0 (1 standard drink = 0.6 oz pur e alcohol) AUDIT-C Answer Date Recorded Q1: How often do you have a drink containing alc ohol? Never 12/11/2020 Average Number of Drinks Not on file 021 Frequency of Binge Drinking Not on file 11/30 Sex and Gender Information Value Date Recorded Sex Assigned at Not on file Legal Sex Male 3:56 PM PAYROLL ADMINISTRATOR Gender Identity Not on file Sexual Orientation Not on file Last Filed Vital Signs Vital Sign Reading Time Taken Comments Blood Pressure 139/75 12/11/2020 4:09 PM PAYROLL ADMINISTRATOR Pulse 91 12/11/2020 4:09 PM PAYROLL ADMINISTRATOR Temperature 36.7 C (98.1 F) 12/11/2020 4:09 PM PAYROLL ADMINISTRATOR Respiratory Rate 16 12/11/2020 4:09 PM PAYROLL ADMINISTRATOR Oxygen Saturation 98% 12/11/2020 4:09 PM PAYROLL ADMINISTRATOR Inhaled Oxygen Concentration - - Weight 99.8 kg (220 lb) 12/11/2020 4:09 PM PAYROLL ADMINISTRATOR Height 172.7 cm (5' 8) 12/11/2020 4:09 PM PAYROLL ADMINISTRATOR Body Mass Index 33.45 12/11/2020 4:09 PM PAYROLL ADMINISTRATOR Plan of Treatment Health Maintenance Due Date Last Done Comments Annual Physical 1985 Hepatitis C 2000 DTaP, Tdap and Td Vaccines ( 1 - Tdap) 2001 Hepatitis B Vaccines (1 of 3 - 19+ 3-dose series) 2001 HPV Vaccines (1 - 3-dose SCD M series) 2009 COVID-19 Vaccine (2023-2 5 season) 2024 Meningococcal B Vaccine Aged Out No l onger eligible based on patient's age to complete this topic Meningococcal Vaccine Aged Out No kory salomón eligible based on patient's age to complete this topic Pneumococcal Vaccine: Pediat rics (0 to 5 Years) and At-Risk Patients (6 to 49 Years) Aged Out No longer eligible b ased on patient's age to complete this topic RSV Immunizations Under 20 Months Aged Out No longer eligible based on patient's age to complete this topic Insurance [facility] Care Teams Road Supervisor Of Engines Relationship Specialty Start Date End Date Adolfo Martel MD [address] [place] [address] PCP - General FAMILY PRACTICE 12/11/20
[2025-07-21 18:46] LABS: Hematocrit 42.2 % (42.0-52.0); Hemoglobin 14.8 g/dL (14.0-18.0); Immature Granulocyte Percent A 0.5 % (0-0.5); Lymphocytes Absolute Auto 2.74 K/mm3 (0.9-3.2); Mean Corpuscular HGB Conc 35.1 g/dl (32-36); Mean Corpuscular Hemoglobin 31.0 pg (26-34); Mean Corpuscular Volume 88.5 fl (80-100); Nucleated Red Blood Cells Absolute Auto 0.000 K/mm3 (0.0-0.012); Nucleated Red Blood Cells Perc 0.0 % (0.0-0.2); Platelet Count Result 334 k/mm3 (150-375); Red Blood Count 4.77 M/mm3 (4.6-6.20); White Blood Count 7.8 K/mm3 (4.5-10.0)
[2025-07-21 18:52] LABS: Hemoglobin A1C 5.4 % (<5.7)
[2025-07-21 18:54] LABS: Alanine Aminotransferase 27 U/L (6-50); Albumin Level 4.5 g/dL (3.5-5.1); Alkaline Phosphatase 61 U/L (38-126); Anion Gap 9 mmol/L (4-12); Aspartate Amino Transferase 48 U/L (17-59); Bilirubin,Total 0.5 mg/dL (0.2-1.3); Blood Urea Nitrogen 16 mg/dL (9-20); Calcium 9.3 mg/dL (8.4-10.2); Carbon Dioxide 26 mmol/L (22-30); Chloride 102 mmol/L (98-107); Cholesterol 290 mg/dL (0-200); Estimated Glomerular Filt Rate > 60; Glucose 97 mg/dL (65-110); HDL Direct 33 mg/dL; Potassium 3.7 mmol/L (3.4-5.0); Sodium 137 mmol/L (137-145); Total Protein 8.1 g/dL (6.3-8.2); Triglycerides 443 mg/dL (<150)
[2025-07-21 19:25] LABS: Thyroid Stimulating Hormone Reflex 1.360 uIU/mL (0.465-4.68)
== END 2025-07-21 15:35 | disposition home or self-care (01) ==
LOC: ANHGOSHLAB 15:35
PROVIDERS: PCP Nurse Practitioner Family; Visit Provider Nurse Practitioner Family
DX: E78.5 Hyperlipidemia, unspecified (principal); I10 Essential (primary) hypertension; E55.9 Vitamin D deficiency, unspecified; R73.03 Prediabetes
CPT/HCPCS: 36415; 80053; 80061; 82306; 83036; 84443; 85025